=== PATIENT | male | born 1950 | race Caucasian/White ===

== ENCOUNTER 2019-04-16 00:58 | Emergency (ER) | payer MEDICARE, OTHER ==
[2019-04-16 01:50] LABS: #Eosinphils 0.2 thou/uL (0.0-0.7); #Lymphocytes 1.1 thou/uL (1.20-3.40); #Monocytes 0.5 thou/uL (0.11-0.59); #Neutrophils 5.1 thou/uL (1.40-6.50); %Basophils 0.5 % (0.0-1.0); %Eosinophils 3.4 % (0.0-10.0); %Lymphocytes 15.4 % (21.0-51.0); %Monocytes 7.8 % (0.0-10.0); %Neutrophils 72.9 % (42.0-75.0); Hemoglobin 12.8 g/dL (14.0-18.0); Mean Corpuscular HGB CONC 34.1 g/dL (32.0-36.0); Mean Corpuscular Hemoglobin 29.6 pg (27.0-31.0); Mean Corpuscular Volume 86.8 fL (78.0-98.0); Mean Platelet Volume 7.7 fL (7.4-10.4); Platelet Count 196 thou/uL (130-400); RBC Distribution Width 12.6 % (11.5-14.5); Red Blood Cell (RBC) Count 4.33 mill/uL (4.70-6.10); White Blood Cell (WBC) Count 6.9 thou/uL (4.8-10.8)
[2019-04-16 02:08] LABS: ALT (SGPT) 26 U/L (8-55); AST (SGOT) 18 U/L (5-34); Alkaline Phosphatase 77 U/L (40-110); Anion Gap 12 mmol/L (10-20); Bilirubin, Total 0.4 mg/dL (0.2-1.2); Calc. Creatinine Clearance 0 mL/min (70-130); Calcium 8.9 mg/dL (7.8-10.44); Carbon Dioxide 24 mmol/L (23-31); Chloride 109 mmol/L (98-107); Estimated GFR-MDRD Greater than 90; Globulin 2.1 g/dL (2.4-3.5); Glucose 153 mg/dL (80-115); Potassium 3.6 mmol/L (3.5-5.1); Protein, Total 6.1 g/dL (5.8-8.1); Sodium 141 mmol/L (136-145)
[2019-04-16 03:08] LABS: BUN (Urea Nitrogen) 15 mg/dL (8.4-25.7)
--- NOTE | 2019-04-16 07:32 | RAD ---
PORTABLE CHEST: Date: 04/16/2019 An AP portable film at 0131 hours is presented with no prior films available for comparison. The lungs are mildly hyperexpanded, but clear. No focal infiltrates or effusions seen. Heart is eliseo l in size. No congestive change. IMPRESSION: No acute thoracic findings. POS: HOME
== END 2019-04-16 02:20 | disposition home or self-care (01) ==
LOC: BURERS 00:58
DX: J06.9 Acute upper respiratory infection, unspecified (principal); E78.5 Hyperlipidemia, unspecified; E78.00 Pure hypercholesterolemia, unspecified; F41.9 Anxiety disorder, unspecified; F32.9 Major depressive disorder, single episode, unspecified; Z87.891 Personal history of nicotine dependence; Z79.899 Other long term (current) drug therapy
CPT/HCPCS: 71045; 80053; 83880; 84484; 85025; 93005

== ENCOUNTER 2020-04-02 10:10 | Emergency (ER) | payer MEDICARE, OTHER ==
[2020-04-02] MEDS ORDERED: Tetracaine 0.5% PF 4 ML BOT ONE (10:26)
[2020-04-02] MEDS ORDERED: Fluorescein Opthalmic Strip ONE (10:26)
[2020-04-02] MEDS ORDERED: Triamcinolone 40 MG/ML VIAL ONE (10:34)
[2020-04-02] MEDS ORDERED: Metoprolol Tartrate 5 MG/5 ML VIAL ONE (10:39)
[2020-04-02] MEDS ORDERED: Metoprolol Tartrate 25 MG TAB PO SCH (10:45)
== END 2020-04-02 10:50 | disposition home or self-care (01) ==
LOC: BURERS 10:10
DX: H10.13 Acute atopic conjunctivitis, bilateral (principal); T49.5X5A Adverse effect of ophthalmological drugs and preparations, initial encounter; I48.91 Unspecified atrial fibrillation; E78.5 Hyperlipidemia, unspecified; E78.00 Pure hypercholesterolemia, unspecified; Z91.19 Patient's noncompliance with other medical treatment and regimen; Z87.891 Personal history of nicotine dependence; Z79.01 Long term (current) use of anticoagulants; Z79.899 Other long term (current) drug therapy
CPT/HCPCS: 96372; 99283; J3301

== ENCOUNTER 2021-02-11 12:35 | Emergency (ER) | payer MEDICARE, OTHER | END 2021-02-11 13:00 | disposition home or self-care (01) | LOC: BURERS 12:35 | DX: B02.9 Zoster without complications (principal); E78.5 Hyperlipidemia, unspecified; E78.00 Pure hypercholesterolemia, unspecified; Z79.01 Long term (current) use of anticoagulants; I48.91 Unspecified atrial fibrillation; F17.200 Nicotine dependence, unspecified, uncomplicated | CPT/HCPCS: 99282 ==

== ENCOUNTER 2021-06-08 19:33 | Emergency (ER) | payer MEDICARE, OTHER ==
[2021-06-08 20:02] LABS: #Basophils 0.1 thou/uL (0.0-0.2); #Eosinphils 0.2 thou/uL (0.0-0.7); #Lymphocytes 1.1 thou/uL (1.20-3.40); #Monocytes 0.7 thou/uL (0.11-0.59); #Neutrophils 5.2 thou/uL (1.40-6.50); %Basophils 0.7 % (0.0-1.0); %Eosinophils 2.6 % (0.0-10.0); %Lymphocytes 15.7 % (21.0-51.0); %Monocytes 9.4 % (0.0-10.0); %Neutrophils 71.6 % (42.0-75.0); Hemoglobin 13.5 g/dL (14.0-18.0); Mean Corpuscular HGB CONC 32.6 g/dL (32.0-36.0); Mean Corpuscular Volume 92.1 fL (78.0-98.0); Mean Platelet Volume 7.8 fL (7.4-10.4); Platelet Count 234 thou/uL (130-400); RBC Distribution Width 13.2 % (11.5-14.5); Red Blood Cell (RBC) Count 4.49 mill/uL (4.70-6.10); White Blood Cell (WBC) Count 7.3 thou/uL (4.8-10.8)
[2021-06-08 20:08] LABS: Prothrombin Time 12.8 sec (12.0-14.7)
[2021-06-08 20:09] LABS: PTT 36.5 sec (22.9-36.1)
[2021-06-08 20:18] LABS: ALT (SGPT) 27 U/L (8-55); AST (SGOT) 19 U/L (5-34); Alkaline Phosphatase 58 U/L (40-110); Anion Gap 16 mmol/L (10-20); BUN (Urea Nitrogen) 17 mg/dL (8.4-25.7); Bilirubin, Total 0.6 mg/dL (0.2-1.2); Calc. Creatinine Clearance 0 mL/min (70-130); Calcium 9.3 mg/dL (7.8-10.44); Carbon Dioxide 24 mmol/L (23-31); Chloride 103 mmol/L (98-107); Globulin 2.6 g/dL (2.4-3.5); Glucose 105 mg/dL (80-115); Potassium 3.8 mmol/L (3.5-5.1); Protein, Total 6.6 g/dL (5.8-8.1); Sodium 139 mmol/L (136-145)
[2021-06-08 23:31] LABS: Bilirubin Negative (Negative); Blood, Urine Negative (Negative); Clarity Clear (Clear); Glucose, Urine (Dipstick) Negative (Negative); Ketone, Urine Negative (Negative); Leukocyte Small (Negative); Nitrite Negative (Negative); Protein, Urine (Dipstick) 30 mg/dL (Neg-Trace); Urobilinogen 0.2 mg/dL (Less than 2)
[2021-06-08 23:36] LABS: Squamous Epithelial None Seen HPF (0-3); WBC/HPF None Seen HPF (0-3)
[2021-06-08 23:37] LABS: Bacteria/HPF None Seen HPF (None Seen); RBC/HPF None Seen HPF (0-3)
== END 2021-06-08 23:45 | disposition critical access hospital (66) ==
LOC: BURERS 19:33
DX: G91.1 Obstructive hydrocephalus (principal); E78.5 Hyperlipidemia, unspecified; E78.00 Pure hypercholesterolemia, unspecified; R29.700 NIHSS score 0; Z87.891 Personal history of nicotine dependence; Z20.822 Contact with and (suspected) exposure to COVID-19; Z98.2 Presence of cerebrospinal fluid drainage device
CPT/HCPCS: 70450; 71045; 80053; 82962; 83880; 84484; 85025; 85610; 85730; 93005; 94760; 99285; U0003; U0005; 36416; 81003; 81015; 36415-59

== ENCOUNTER 2021-12-13 00:05 | Emergency (ER) | payer MEDICARE, OTHER ==
[2021-12-13 01:01] LABS: #Eosinphils 0.2 thou/uL (0.0-0.7); #Monocytes 0.6 thou/uL (0.11-0.59); #Neutrophils 6.7 thou/uL (1.40-6.50); %Basophils 0.6 % (0.0-1.0); %Eosinophils 1.8 % (0.0-10.0); %Lymphocytes 11.7 % (21.0-51.0); %Monocytes 7.4 % (0.0-10.0); %Neutrophils 78.5 % (42.0-75.0); Hemoglobin 13.2 g/dL (14.0-18.0); Mean Corpuscular HGB CONC 32.7 g/dL (32.0-36.0); Mean Corpuscular Hemoglobin 29.5 pg (27.0-31.0); Mean Corpuscular Volume 90.1 fL (78.0-98.0); Mean Platelet Volume 6.9 fL (7.4-10.4); Platelet Count 238 thou/uL (130-400); RBC Distribution Width 12.2 % (11.5-14.5); Red Blood Cell (RBC) Count 4.49 mill/uL (4.70-6.10); White Blood Cell (WBC) Count 8.6 thou/uL (4.8-10.8)
[2021-12-13 01:07] LABS: PTT 40.2 sec (22.9-36.1); Prothrombin Time 13.4 sec (12.0-14.7)
[2021-12-13 01:15] LABS: ALT (SGPT) 19 U/L (8-55); AST (SGOT) 16 U/L (5-34); Albumin 3.9 g/dL (3.4-4.8); Alkaline Phosphatase 75 U/L (40-110); Anion Gap 14 mmol/L (10-20); BUN (Urea Nitrogen) 18 mg/dL (8.4-25.7); Bilirubin, Total 0.5 mg/dL (0.2-1.2); Calc. Creatinine Clearance 0 mL/min (70-130); Calcium 9.2 mg/dL (7.8-10.44); Carbon Dioxide 25 mmol/L (23-31); Chloride 106 mmol/L (98-107); Estimated GFR 93; Globulin 2.5 g/dL (2.4-3.5); Glucose 122 mg/dL (80-115); Magnesium 2.1 mg/dL (1.6-2.6); Potassium 4.1 mmol/L (3.5-5.1); Protein, Total 6.4 g/dL (5.8-8.1); Sodium 141 mmol/L (136-145)
== END 2021-12-13 04:05 | disposition short-term general hospital (02) ==
LOC: BURERS 00:05
DX: S01.01XA Laceration without foreign body of scalp, initial encounter (principal); G91.1 Obstructive hydrocephalus; W18.09XA Striking against other object with subsequent fall, initial encounter
CPT/HCPCS: 12011; 36415; 70450; 72125; 80053; 83735; 84484; 85025; 85610; 85730; 93005